=== PATIENT | female | born 1985 ===

== ENCOUNTER 2017-06-25 04:14 | Day surgery (SDC) | payer BC ==
[2017-06-25] VITALS (9 sets, daily range): BP systolic 97–103; BP diastolic 44–74
[~2017-06-25] VITALS: Ht 157.5 cm; Wt 76.7 kg
[~2017-06-25 04:14] MED LIST: NORG1TAB74 PO
[2017-06-25] MEDS: NORMOSOL R SOLN(*) 1000 ML BAG 1,000 ML IV PRN ×2 (07:33→11:23)
[2017-06-25 07:44] LABS: PLATELET COUNT, AUTOMATED 181 K/uL (150-450)
[2017-06-25] MEDS ORDERED: ROPIVACAINE 0.2% 20 ML VIAL ONE (07:48)
[2017-06-25] MEDS ORDERED: fentaNYL CITR 100 MCG/2 ML AMP ONE ×2 (08:00→10:25)
[2017-06-25] MEDS ORDERED: PROPOFOL EMUL(*) 10MG/ML 20 ML 20 ML ONE (08:02)
[2017-06-25] MEDS ORDERED: LIDOCAINE 2% IV 100 MG/5ML SYR ONE (08:04)
[2017-06-25] MEDS ORDERED: FAMOTIDINE 20 MG TAB PO ONE (08:05)
[2017-06-25] MEDS ORDERED: MIDAZOLAM 2 MG/2 ML VIAL IVP PRN (08:05)
[2017-06-25] MEDS ORDERED: LIDOCAINE/SOD BICARB 8.4% SYR ID ONE (08:05)
[2017-06-25] MEDS ORDERED: ROCURONIUM BROM 10 MG/ML 5 ML ONE (09:30)
[2017-06-25] MEDS ORDERED: DEXAMETHASONE SOD 4 MG/ML VIAL ONE (09:31)
[2017-06-25] MEDS ORDERED: KETOROLAC 30 MG/ML VIAL ONE (09:31)
[2017-06-25] MEDS ORDERED: ONDANSETRON 4 MG/2 ML VIAL ONE (09:31)
[2017-06-25] MEDS ORDERED: SUGAMMADEX SOD 200 MG/2 ML SDV ONE (09:39)
[2017-06-25] MEDS ORDERED: LR(*) 1000 ML BAG 1,000 ML IV ONE (10:18)
[2017-06-25] MEDS ORDERED: APAP/HYDROCODONE 325/5 TAB PO PRN (10:20)
--- NOTE | 2017-06-25 10:24 | Post Operative Note ---
Operative Note - [facility] Operative Day Date: Jun 25, 2017 Time: 10:19 Physicians Surgeon: Toyin Anesthesia: GETA Diagnosis Pre-Op Diagnosis: sterilization Post-Op Diagnosis: same Procedure Findings: normal anatomy Procedure(s): L-scope BTL via fallope ring Specimen Removed:(Maybe N/A): [id number] Complications: none Fluids Fluids: 900 ml Estimated Blood Loss: minimal Dictated Date OP Note Dictated: Jun 25, 2017 Time OP Note Dictated: 10:20 Copies to: BRITTANIE STRONG MD, TRAVIS MD Jun 25, 2017 10:24
[2017-06-25] MEDS ORDERED: LOR5/325 PO (10:28)
--- NOTE | 2017-06-25 10:29 | Short(Outpt) Discharge Summary ---
Discharge Summary Reason for Hosp/Final Diag: (1) Admission for sterilization Hospital Course & Plan: s/p L-scope BTL - fallope ring Departure Discharge to: Home, Self Care Discharge Instructions Home Meds Active Scripts Hydrocodone Bit/Acetaminophen (HYDROCODON-ACETAMINOPHEN 5-325) 1 Each Tablet, 1- 2 EACH PO Q4H Y for PAIN, #10 TAB 0 Refills Prov:JOSE DEAL MD 06/25/17 Reported Medications Norgestimate-Ethinyl Estradiol (SPRINTEC) 1 Each Tablet, 1 EACH PO DAILY 06/23/17 Follow up Referrals: PLASTIC FABRICATOR - In Two Weeks @ [facility] with Jose Deal Md Diet: Regular Activity: As Tolerated Copies to: JOSE DEAL MD, TRAVIS MD Jun 25, 2017 10:29
[2017-06-25] MEDS ORDERED: PROMETHAZINE 25 MG/ML 1 ML AMP ONE (10:38)
--- NOTE | 2017-06-25 18:26 | OPERATIVE REPORT 1 ---
EVENT DATE: June 25, 2017 SURGEON: Jose Deal MD ANESTHESIOLOGIST: Sky Deal MD ANESTHESIA: General endotracheal. PREOPERATIVE DIAGNOSIS Desired sterilization. POSTOPERATIVE DIAGNOSIS Desired sterilization. PROCEDURE PERFORMED Laparoscopic bilateral tubal ligation via Falope Ring. ESTIMATED BLOOD LOSS Minimal. FLUIDS Crystalloid 900 mL IV. FINDINGS Normal-appearing uterus, tubes, and ovaries. Normal abdominal and pelvic contents. PROCEDURE IN DETAIL The patient was brought to the operating room with a working IV and placed in the dorsal supine position. She was placed under general endotracheal anesthesia and moved to the dorsal lithotomy position. She was prepped and draped in the usual sterile fashion. A weighted speculum was placed in the vagina. The cervix was grasped on the anterior lip with a single-toothed tenaculum. It was sounded to a depth of 7 cm retroverted. The cervix was carefully dilated to a size 6 Hegar dilator. A size 6 LUIS M uterine manipulator was selected, assembled, and passed through the cervix into the uterus. The balloon was inflated and secured, and all other instruments were then removed. The legs were brought back to the supine position, and gloves were changed. The umbilicus was infiltrated with 0.2% Naropin. A 5 mm stab incision was made , and a Veress needle was passed through this incision into the abdomen while stabilizing and elevating the anterior abdominal wall. A pneumoperitoneum was created to an intra-abdominal pressure of 20 mmHg. The Veress needle was then removed, and then a 5 mm bladeless trocar was passed through this incision into the abdomen under direct visualization with the scope and without incident. The abdomen and pelvis were surveyed with the scope with the above findings noted. The patient was moved to the Trendelenburg position, and a second 8 mm port was placed in the suprapubic location under direct visualization with the scope and without incident. The uterus was elevated with the LUIS M. The Falope Ring applicator was used to grasp the right fallopian tube which was elevated in the isthmic portion. A knuckle of tube was created with the device as it was drawn into the Falope Ring device, and two Falope Rings were applied in this location over the knuckle of tube. The same procedure was followed on the contralateral side without complication or incident. The pneumoperitoneum was then released. All instruments were removed from the abdomen. Skin incisions were repaired a 4-0 Monocryl simple subdermal and covered with Dermabond skin adhesive. She tolerated the procedure well. Sponge, lap, needle, and instrument counts were all correct times three. LUIS M uterine manipulator was removed. She was taken to recovery in stable condition. GILBERTO
== END 2017-06-25 11:30 | disposition home or self-care (01) ==
LOC: OR 04:14
PROVIDERS: ATTEND Obstetrics & Gynecology
DX: Z30.2 Encounter for sterilization (principal); E66.9 Obesity, unspecified
CPT/HCPCS: 36415; 58671; 84703; 85025; J1100; J1885; J2001; J2405; J2550; J2704; J2795; J3010